=== PATIENT | female | born 1930 | race Caucasian/White ===

== ENCOUNTER 2018-10-21 08:38 | Inpatient (IN) ==
[2018-10-21 10:17] LABS: Apearance,Urine CLOUDY (Clear); Bacteria,Urine Moderate /HPF (Few); Bilirubin,Urine Negative (Negative); Blood, Urine Large mg/dL (Negative); Glucose,Urine (UA) Negative (Negative); Ketones,Urine Negative (Negative); Mucus,Urine Occasional /LPF (Occasional); Nitrite,Urine Negative (Negative); Protein,Urine 30 MG/DL; RBC,Urine 109 /HPF (0-4); Squamous Epithelial Cell,Urine Occasional /HPF (0-10); Urine Color Amber (Yellow); Urine Specific Gravity 1.012 (1.001-1.035); WBC,Urine 105 /HPF (0-6)
[2018-10-21 10:31] LABS: Basophils # 0.1 10*3/uL (0.0-0.2); Basophils % 0.2 % (0.0-0.8); Hemoglobin 7.2 GM/DL (12.0-16.0); Immature Granulocytes % 4.5 %; Immature Granulocytes Absolute 1.77 #; Lymphocytes # 0.5 10*3/uL (1.4-4.0); Lymphocytes % 1.3 % (21.3-54.2); Mean Corpuscular HGB Conc 31.3 GM/DL (32-36); Mean Corpuscular Hemoglobin 28 PG (27-34); Mean Corpuscular Volume 88.5 FL (87-102); Mean Platelet Volume 8.6 FL (9.6-12.0); Monocytes # 1.4 10*3/uL (0.11-0.8); Monocytes % 3.6 % (1.7-12.7); Neutrophils # 35.5 10*3/uL (1.4-7.4); Neutrophils % 90.4 % (38.7-73.9); Platelet Count 404 T/CUMM (130-400); Red Cell Distribution Width 13.2 % (9.3-17.3); White Blood Count 39.2 T/CUMM (4-12)
[2018-10-21] MEDS ORDERED: MEROPENEM 1,000 MG in SODIUM CHLORIDE 0.9% 100 ML IV STA (10:44)
[2018-10-21 10:50] LABS: Band Neutrophils 10 % (0-10); Hypochromasia 1+; Platelet Estimate Adequate; Segmented Neutrophils 88 % (50-85); Total Cells Counted 100
[2018-10-21] MEDS ORDERED: SODIUM CHLORIDE 0.9% 1,000 ML IV STA (10:50)
[2018-10-21] MEDS ORDERED: ACETAMINOPHEN 325 MG TABLET PO PRN (11:12)
[2018-10-21] MEDS ORDERED: ONDANSETRON 4 MG/2 ML VIAL IV PRN (11:12)
[2018-10-21] MEDS: SODIUM CHLORIDE 0.9% 1,000 ML IV SCH ×2 (11:55→17:06)
[2018-10-21 13:16] LABS: Albumin 3.1 G/DL (3.4-5.0); Bilirubin,Total 0.9 MG/DL (0.2-1.0); Calcium 9.7 MG/DL (8.5-10.1); Osmolality,Calculated 271.4 MOS/KG (273-304); Potassium 4.6 MMOL/L (3.5-5.1); Total Protein 6.6 G/DL (6.4-8.3)
[2018-10-21] MEDS ORDERED: SODIUM CHLORIDE 0.9% 1,000 ML IV PRN ×2 (16:42→16:53)
[2018-10-21] MEDS ORDERED: FUROSEMIDE 40 MG/4 ML VIAL IV ONE (16:44)
[2018-10-21 17:30] LABS: Hematocrit 21.3 VOL% (35.7-47.0)
[2018-10-21 17:32] LABS: Hemoglobin 6.4 GM/DL (12.0-16.0)
[2018-10-21 17:56] LABS: % Iron Saturation 2.3 % (18-50); Ferritin 30.5 ng/ml (8-252)
[2018-10-21] MEDS: PANTOPRAZOLE 40 MG VIAL IV SCH (18:38)
[2018-10-21] MEDS: MELATONIN 3 MG TABLET PO SCH (22:45)
[2018-10-21] MEDS: ENOXAPARIN 40 MG/0.4 ML SYRINGE SUBCUT SCH (22:46)
[2018-10-21] MEDS: DOCUSATE SODIUM 100 MG CAPSULE PO SCH (22:46)
[2018-10-22] MEDS: MEROPENEM 1,000 MG in SODIUM CHLORIDE 0.9% 100 ML IV SCH ×3 (00:51→23:25)
[2018-10-22] MEDS: SODIUM CHLORIDE 0.9% 1,000 ML IV SCH ×4 (00:51→23:32)
[2018-10-22] MEDS ORDERED: FUROSEMIDE 40 MG/4 ML VIAL ONE (04:29)
[2018-10-22] MEDS ORDERED: PANTOPRAZOLE 40 MG TABLET PO SCH (09:00)
[2018-10-22 09:52] LABS: Basophils # 0.1 10*3/uL (0.0-0.2); Basophils % 0.3 % (0.0-0.8); Eosinophils # 0.1 10*3/uL (0.0-0.87); Eosinophils % 0.4 % (0.00-10.9); Hematocrit 29.6 VOL% (35.7-47.0); Hemoglobin 9.1 GM/DL (12.0-16.0); Immature Granulocytes % 1.7 %; Immature Granulocytes Absolute 0.44 #; Lymphocytes # 1.2 10*3/uL (1.4-4.0); Lymphocytes % 4.5 % (21.3-54.2); Mean Corpuscular HGB Conc 30.7 GM/DL (32-36); Mean Corpuscular Hemoglobin 27 PG (27-34); Mean Corpuscular Volume 88.6 FL (87-102); Mean Platelet Volume 9.3 FL (9.6-12.0); Monocytes # 0.6 10*3/uL (0.11-0.8); Monocytes % 2.2 % (1.7-12.7); Neutrophils # 24.2 10*3/uL (1.4-7.4); Neutrophils % 90.9 % (38.7-73.9); Platelet Count 376 T/CUMM (130-400); Red Blood Count 3.34 MC/CUMM (3.8-5.5); Red Cell Distribution Width 13.7 % (9.3-17.3); White Blood Count 26.6 T/CUMM (4-12)
[2018-10-22] MEDS: PANTOPRAZOLE 40 MG VIAL IV SCH (09:55)
[2018-10-22] MEDS: DOCUSATE SODIUM 100 MG CAPSULE PO SCH ×2 (09:57→21:46)
[2018-10-22 10:13] LABS: Calcium 8.5 MG/DL (8.5-10.1); Osmolality,Calculated 278.1 MOS/KG (273-304); Potassium 3.3 MMOL/L (3.5-5.1)
[2018-10-22 12:33] LABS: Band Neutrophils 2 % (0-10); Lymphocytes 9 % (20-55); Segmented Neutrophils 88 % (50-85); Total Cells Counted 100
[2018-10-22 12:40] LABS: Hypochromasia 1+; Platelet Estimate Adequate
[2018-10-22 16:27] LABS: Hematocrit 27.2 VOL% (35.7-47.0); Hemoglobin 8.9 GM/DL (12.0-16.0)
[2018-10-22] MEDS: POTASSIUM CHLORIDE 20 MEQ TABLET PO PRN ×3 (18:19→23:23)
[2018-10-22] MEDS: ENOXAPARIN 40 MG/0.4 ML SYRINGE SUBCUT SCH (21:52)
[2018-10-22] MEDS: MELATONIN 3 MG TABLET PO SCH (21:52)
[2018-10-23 00:56] LABS: Hematocrit 27.3 VOL% (35.7-47.0); Hemoglobin 8.9 GM/DL (12.0-16.0)
[2018-10-23 01:13] LABS: Calcium 8.3 MG/DL (8.5-10.1); Potassium 4.3 MMOL/L (3.5-5.1)
[2018-10-23 07:59] LABS: Hematocrit 31.1 VOL% (35.7-47.0); Hemoglobin 9.8 GM/DL (12.0-16.0)
[2018-10-23] MEDS: ALLOPURINOL 100 MG TABLET PO SCH (08:55)
[2018-10-23] MEDS: DOCUSATE SODIUM 100 MG CAPSULE PO SCH ×2 (08:55→21:58)
[2018-10-23] MEDS: PANTOPRAZOLE 40 MG VIAL IV SCH (08:55)
[2018-10-23] MEDS: MEROPENEM 1,000 MG in SODIUM CHLORIDE 0.9% 100 ML IV SCH ×2 (11:43→22:07)
[2018-10-23] MEDS: SODIUM CHLORIDE 0.9% 1,000 ML IV SCH (14:10)
[2018-10-23] MEDS: ENOXAPARIN 40 MG/0.4 ML SYRINGE SUBCUT SCH (21:57)
[2018-10-23] MEDS: MELATONIN 3 MG TABLET PO SCH (21:57)
[2018-10-24] MEDS: SODIUM CHLORIDE 0.9% 1,000 ML IV SCH ×2 (04:13→20:20)
[2018-10-24 05:29] LABS: Basophils # 0.1 10*3/uL (0.0-0.2); Basophils % 0.6 % (0.0-0.8); Eosinophils # 0.4 10*3/uL (0.0-0.87); Eosinophils % 3.8 % (0.00-10.9); Hematocrit 27.8 VOL% (35.7-47.0); Hemoglobin 8.7 GM/DL (12.0-16.0); Immature Granulocytes % 0.8 %; Immature Granulocytes Absolute 0.09 #; Lymphocytes # 1.7 10*3/uL (1.4-4.0); Lymphocytes % 15.3 % (21.3-54.2); Mean Corpuscular HGB Conc 31.3 GM/DL (32-36); Mean Corpuscular Hemoglobin 27 PG (27-34); Mean Corpuscular Volume 87.4 FL (87-102); Mean Platelet Volume 9.5 FL (9.6-12.0); Monocytes # 0.8 10*3/uL (0.11-0.8); Neutrophils # 7.9 10*3/uL (1.4-7.4); Neutrophils % 72.5 % (38.7-73.9); Platelet Count 363 T/CUMM (130-400); Red Blood Count 3.18 MC/CUMM (3.8-5.5); Red Cell Distribution Width 13.5 % (9.3-17.3); White Blood Count 10.8 T/CUMM (4-12)
[2018-10-24 05:45] LABS: Calcium 8.5 MG/DL (8.5-10.1); Osmolality,Calculated 275.5 MOS/KG (273-304); Potassium 4.2 MMOL/L (3.5-5.1)
[2018-10-24] MEDS: DOCUSATE SODIUM 100 MG CAPSULE PO SCH ×2 (09:07→20:19)
[2018-10-24] MEDS: amLODIPine 5 MG TABLET PO SCH (09:09)
[2018-10-24] MEDS: ALLOPURINOL 100 MG TABLET PO SCH (09:09)
[2018-10-24] MEDS: PANTOPRAZOLE 40 MG VIAL IV SCH (09:09)
[2018-10-24] MEDS: MEROPENEM 1,000 MG in SODIUM CHLORIDE 0.9% 100 ML IV SCH ×2 (10:27→20:18)
[2018-10-24] MEDS ORDERED: PROPOFOL 200 MG/20 ML VIAL IV ONE (13:58)
[2018-10-24] MEDS ORDERED: LIDOCAINE 2% 5 ML VIAL ONE (13:58)
[2018-10-24] MEDS ORDERED: POLYETHYLENE GLYCOL POWDER 255 GM BOTTLE PO ONE (18:00)
[2018-10-24] MEDS: MELATONIN 3 MG TABLET PO SCH (20:20)
[2018-10-25 05:23] LABS: Calcium 8.5 MG/DL (8.5-10.1); Osmolality,Calculated 273.5 MOS/KG (273-304); Potassium 3.9 MMOL/L (3.5-5.1)
[2018-10-25] MEDS ORDERED: MAGNESIUM CITRATE 300 ML BOTTLE PO ONE (06:00)
[2018-10-25] MEDS: amLODIPine 5 MG TABLET PO SCH (08:56)
[2018-10-25] MEDS: ALLOPURINOL 100 MG TABLET PO SCH (08:56)
[2018-10-25] MEDS: PANTOPRAZOLE 40 MG VIAL IV SCH (08:56)
[2018-10-25] MEDS: MEROPENEM 1,000 MG in SODIUM CHLORIDE 0.9% 100 ML IV SCH (08:59)
[2018-10-25] MEDS: SODIUM CHLORIDE 0.9% 1,000 ML IV SCH (09:41)
[2018-10-25] MEDS ORDERED: PROPOFOL 200 MG/20 ML VIAL IV ONE (10:00)
[2018-10-25] MEDS ORDERED: LIDOCAINE 2% 5 ML VIAL ONE (10:00)
[2018-10-25] MEDS: DOCUSATE SODIUM 100 MG CAPSULE PO SCH (10:26)
[2018-10-25 14:33] VITALS: BP 156/64
== END 2018-10-25 16:10 | disposition home or self-care (01) | DRG 871 ==
LOC: N.ED 08:38 → N.EDINP 11:12 → N.2E 11:37
PROVIDERS: ADMIT Family Medicine; ATTEND Family Medicine

== ENCOUNTER 2019-06-28 14:42 | Inpatient (IN) ==
[2019-06-28] MEDS ORDERED: ONDANSETRON 4 MG/2 ML VIAL IV STA (15:15)
[2019-06-28] MEDS ORDERED: SODIUM CHLORIDE 0.9% 1,000 ML IV STA (16:07)
[2019-06-28 16:30] LABS: Basophils # 0.1 10*3/uL (0.0-0.2); Basophils % 0.2 % (0.0-0.8); Hematocrit 35.9 VOL% (35.7-47.0); Hemoglobin 12.4 GM/DL (12.0-16.0); Immature Granulocytes % 0.8 %; Immature Granulocytes Absolute 0.17 #; Lymphocytes # 0.9 10*3/uL (1.4-4.0); Lymphocytes % 4.3 % (21.3-54.2); Mean Corpuscular HGB Conc 34.5 GM/DL (32-36); Mean Corpuscular Volume 94.2 FL (87-102); Mean Platelet Volume 8.9 FL (9.6-12.0); Monocytes % 5.7 % (1.7-12.7); Platelet Count 338 T/CUMM (130-400); Red Blood Count 3.81 MC/CUMM (3.8-5.5); Red Cell Distribution Width 13.6 % (9.3-17.3); White Blood Count 20.5 T/CUMM (4-12)
[2019-06-28 16:39] LABS: PT Patient Result 10.4 SECS (9.6-12.2)
[2019-06-28 16:50] LABS: Albumin 3.3 G/DL (3.4-5.0); Bilirubin,Total 1.6 MG/DL (0.2-1.0); Calcium 9.5 MG/DL (8.5-10.1); Lymphocytes 7 % (20-55); Osmolality,Calculated 267.7 MOS/KG (273-304); Segmented Neutrophils 85 % (50-85); Total Cells Counted 100; Total Protein 7.5 G/DL (6.4-8.3)
[2019-06-28 16:51] LABS: Platelet Estimate Adequate
[2019-06-28 16:52] LABS: Troponin I < 0.015 NG/ML (0.00-0.045)
[2019-06-28 16:54] LABS: Apearance,Urine Slightly Hazy (Clear); Bacteria,Urine Occasional /HPF (Few); Bilirubin,Urine Negative (Negative); Blood, Urine Small mg/dL (Negative); Glucose,Urine (UA) Negative (Negative); Ketones,Urine Negative (Negative); Mucus,Urine Many /LPF (Occasional); Nitrite,Urine Negative (Negative); Protein,Urine 30 MG/DL; Squamous Epithelial Cell,Urine Occasional /HPF (0-10); Urine Color Yellow (Yellow); Urine Specific Gravity 1.015 (1.001-1.035); WBC,Urine 20 /HPF (0-6)
[2019-06-28 17:04] LABS: Free T4 (Free Thyroxine) 1.18 NG/DL (0.76-1.46); Thyroid Stimulating Hormone 0.637 uIU/ml (0.358-3.74)
[2019-06-28] MEDS: SODIUM CHLORIDE 0.9% 1,000 ML IV SCH (19:38)
[2019-06-28] MEDS: DOCUSATE SODIUM 100 MG CAPSULE PO SCH (20:49)
[2019-06-29] MEDS: SODIUM CHLORIDE 0.9% 1,000 ML IV SCH ×3 (03:55→22:34)
[2019-06-29 05:47] LABS: Albumin 2.6 G/DL (3.4-5.0); Bilirubin,Total 1.6 MG/DL (0.2-1.0); Osmolality,Calculated 272.1 MOS/KG (273-304); Total Protein 6.6 G/DL (6.4-8.3)
[2019-06-29] MEDS ORDERED: LEVOFLOXACIN INJ 750 MG in PREMIX 1 EACH IV SCH (07:00)
[2019-06-29] MEDS: DOCUSATE SODIUM 100 MG CAPSULE PO SCH ×2 (09:46→20:48)
[2019-06-29] MEDS: PANTOPRAZOLE 40 MG TABLET PO SCH (09:46)
[2019-06-29] MEDS: ONDANSETRON 4 MG/2 ML VIAL IV PRN (17:33)
[2019-06-29] MEDS: ACETAMINOPHEN 325 MG TABLET PO PRN (17:45)
[2019-06-30] MEDS: SODIUM CHLORIDE 0.9% 1,000 ML IV SCH ×2 (06:15→17:22)
[2019-06-30] MEDS: CYANOCOBALAMIN 500 MCG TABLET PO SCH (09:53)
[2019-06-30] MEDS: ASPIRIN EC 81 MG TABLET PO SCH (09:53)
[2019-06-30] MEDS: PANTOPRAZOLE 40 MG TABLET PO SCH (09:53)
[2019-06-30] MEDS: OMEGA 3 ACID ETHYL ESTERS 1 GM CAPSULE PO SCH (09:53)
[2019-06-30] MEDS: DOCUSATE SODIUM 100 MG CAPSULE PO SCH ×2 (09:53→20:49)
[2019-06-30] MEDS: amLODIPine 5 MG TABLET PO SCH (09:53)
[2019-06-30] MEDS: TRIAMTERENE/HCTZ 37.5-25 MG TABLET PO SCH (09:54)
[2019-06-30] MEDS: OLMESARTAN 20 MG TABLET PO SCH (09:54)
[2019-06-30] MEDS: LEVOFLOXACIN INJ 750 MG in PREMIX 1 EACH IV SCH (09:55)
[2019-06-30] MEDS: VANCOMYCIN INJ 1,000 MG in SODIUM CHLORIDE 0.9% 250 ML IV SCH (12:11)
[2019-06-30] MEDS: ONDANSETRON 4 MG/2 ML VIAL IV PRN (16:15)
[2019-06-30] MEDS: ZALEPLON 5 MG CAPSULE PO PRN (20:49)
[2019-07-01] MEDS: SODIUM CHLORIDE 0.9% 1,000 ML IV SCH ×3 (00:55→20:25)
[2019-07-01] MEDS: VANCOMYCIN INJ 1,000 MG in SODIUM CHLORIDE 0.9% 250 ML IV SCH (07:00)
[2019-07-01] MEDS: CYANOCOBALAMIN 500 MCG TABLET PO SCH (09:34)
[2019-07-01] MEDS: ASPIRIN EC 81 MG TABLET PO SCH (09:34)
[2019-07-01] MEDS: TRIAMTERENE/HCTZ 37.5-25 MG TABLET PO SCH (09:34)
[2019-07-01] MEDS: PANTOPRAZOLE 40 MG TABLET PO SCH (09:34)
[2019-07-01] MEDS: OLMESARTAN 20 MG TABLET PO SCH (09:34)
[2019-07-01] MEDS: amLODIPine 5 MG TABLET PO SCH (09:34)
[2019-07-01] MEDS: OMEGA 3 ACID ETHYL ESTERS 1 GM CAPSULE PO SCH (09:34)
[2019-07-01] MEDS: DOCUSATE SODIUM 100 MG CAPSULE PO SCH ×2 (09:34→20:22)
[2019-07-01] MEDS: LEVOFLOXACIN INJ 750 MG in PREMIX 1 EACH IV SCH (09:35)
[2019-07-01] MEDS: ONDANSETRON 4 MG/2 ML VIAL IV PRN (14:26)
[2019-07-01] MEDS: ACETAMINOPHEN 325 MG TABLET PO PRN (20:22)
[2019-07-01] MEDS: ZALEPLON 5 MG CAPSULE PO PRN (20:22)
[2019-07-02] MEDS: VANCOMYCIN INJ 1,000 MG in SODIUM CHLORIDE 0.9% 250 ML IV SCH ×2 (00:06→19:00)
[2019-07-02 06:19] LABS: Basophils # 0.1 10*3/uL (0.0-0.2); Basophils % 0.4 % (0.0-0.8); Eosinophils # 0.1 10*3/uL (0.0-0.87); Eosinophils % 0.8 % (0.00-10.9); Hematocrit 29.7 VOL% (35.7-47.0); Hemoglobin 10.1 GM/DL (12.0-16.0); Immature Granulocytes % 0.9 %; Lymphocytes # 1.3 10*3/uL (1.4-4.0); Lymphocytes % 11.4 % (21.3-54.2); Mean Corpuscular Volume 93.7 FL (87-102); Mean Platelet Volume 9.3 FL (9.6-12.0); Monocytes % 7.2 % (1.7-12.7); Neutrophils % 79.3 % (38.7-73.9); Platelet Count 345 T/CUMM (130-400); Red Blood Count 3.17 MC/CUMM (3.8-5.5); Red Cell Distribution Width 13.3 % (9.3-17.3); White Blood Count 11.5 T/CUMM (4-12)
[2019-07-02 06:53] LABS: Calcium 8.4 MG/DL (8.5-10.1)
[2019-07-02] MEDS: SODIUM CHLORIDE 0.9% 1,000 ML IV SCH ×2 (08:00→17:43)
[2019-07-02] MEDS: amLODIPine 5 MG TABLET PO SCH (08:54)
[2019-07-02] MEDS: TRIAMTERENE/HCTZ 37.5-25 MG TABLET PO SCH (08:54)
[2019-07-02] MEDS: OLMESARTAN 20 MG TABLET PO SCH (08:54)
[2019-07-02] MEDS: DOCUSATE SODIUM 100 MG CAPSULE PO SCH ×2 (08:54→20:40)
[2019-07-02] MEDS: OMEGA 3 ACID ETHYL ESTERS 1 GM CAPSULE PO SCH (08:54)
[2019-07-02] MEDS: PANTOPRAZOLE 40 MG TABLET PO SCH (08:54)
[2019-07-02] MEDS: ASPIRIN EC 81 MG TABLET PO SCH (08:54)
[2019-07-02] MEDS: CYANOCOBALAMIN 500 MCG TABLET PO SCH (08:54)
[2019-07-02] MEDS: LEVOFLOXACIN INJ 750 MG in PREMIX 1 EACH IV SCH (09:16)
[2019-07-02] MEDS: ACETAMINOPHEN 325 MG TABLET PO PRN (17:41)
[2019-07-02] MEDS: ZALEPLON 5 MG CAPSULE PO PRN (20:40)
[2019-07-03] MEDS: SODIUM CHLORIDE 0.9% 1,000 ML IV SCH ×2 (01:49→11:22)
[2019-07-03 07:54] VITALS: BP 171/72
[2019-07-03] MEDS: LEVOFLOXACIN INJ 750 MG in PREMIX 1 EACH IV SCH (09:02)
[2019-07-03] MEDS: CYANOCOBALAMIN 500 MCG TABLET PO SCH (09:03)
[2019-07-03] MEDS: DOCUSATE SODIUM 100 MG CAPSULE PO SCH (09:03)
[2019-07-03] MEDS: amLODIPine 5 MG TABLET PO SCH (09:03)
[2019-07-03] MEDS: ASPIRIN EC 81 MG TABLET PO SCH (09:03)
[2019-07-03] MEDS: PANTOPRAZOLE 40 MG TABLET PO SCH (09:03)
[2019-07-03] MEDS: TRIAMTERENE/HCTZ 37.5-25 MG TABLET PO SCH (09:03)
[2019-07-03] MEDS: OMEGA 3 ACID ETHYL ESTERS 1 GM CAPSULE PO SCH (09:03)
[2019-07-03] MEDS: OLMESARTAN 20 MG TABLET PO SCH (09:04)
== END 2019-07-03 11:05 | disposition home health service (06) | DRG 690 ==
LOC: N.ED 14:42 → N.EDINP 18:08 → N.2E 18:35
PROVIDERS: ADMIT Family Medicine; ATTEND Family Medicine

== ENCOUNTER 2019-07-20 13:16 | Inpatient (IN) ==
[2019-07-20] MEDS ORDERED: SODIUM CHLORIDE 0.9% 1,000 ML IV STA (13:46)
[2019-07-20 13:59] LABS: Basophils # 0.1 10*3/uL (0.0-0.2); Basophils % 0.3 % (0.0-0.8); Eosinophils % 0.1 % (0.00-10.9); Hematocrit 35.6 VOL% (35.7-47.0); Immature Granulocytes % 0.7 %; Immature Granulocytes Absolute 0.16 #; Lymphocytes # 1.4 10*3/uL (1.4-4.0); Lymphocytes % 6.3 % (21.3-54.2); Mean Corpuscular HGB Conc 33.7 GM/DL (32-36); Mean Corpuscular Volume 93.9 FL (87-102); Mean Platelet Volume 8.8 FL (9.6-12.0); Monocytes % 6.9 % (1.7-12.7); Neutrophils % 85.7 % (38.7-73.9); Platelet Count 438 T/CUMM (130-400); Red Blood Count 3.79 MC/CUMM (3.8-5.5); Red Cell Distribution Width 13.2 % (9.3-17.3); White Blood Count 21.9 T/CUMM (4-12)
[2019-07-20 14:18] LABS: Calcium 10.4 MG/DL (8.5-10.1); Osmolality,Calculated 265.8 MOS/KG (273-304); Total Protein 8.6 G/DL (6.4-8.3)
[2019-07-20 14:22] LABS: Troponin I < 0.015 NG/ML (0.00-0.045)
[2019-07-20 14:22] LABS: Apearance,Urine CLEAR (Clear); Bilirubin,Urine Negative (Negative); Blood, Urine Negative (Negative); Glucose,Urine (UA) Negative (Negative); Hyaline Casts,Urine 1 /LPF (0-3); Ketones,Urine Negative (Negative); Mucus,Urine Occasional /LPF (Occasional); Nitrite,Urine Negative (Negative); Protein,Urine 30 MG/DL; RBC,Urine 3 /HPF (0-4); Squamous Epithelial Cell,Urine Occasional /HPF (0-10); Transitional Epi Cells,Urine Occasional /HPF (<1); Urine Color Yellow (Yellow); Urine Specific Gravity 1.015 (1.001-1.035); Urine Urobilinogen < 2.0 EU/DL (0.2-1.0); WBC,Urine 1 /HPF (0-6)
[2019-07-20] MEDS ORDERED: ONDANSETRON 4 MG/2 ML VIAL IV PRN (15:19)
[2019-07-20] MEDS ORDERED: ACETAMINOPHEN 500 MG TABLET PO PRN (15:19)
[2019-07-20 16:06] LABS: Band Neutrophils 1 % (0-10); Lymphocytes 11 % (20-55); Platelet Estimate Increased; Segmented Neutrophils 85 % (50-85); Total Cells Counted 100
[2019-07-20] MEDS: cefTRIAXone 2,000 MG in SYRINGE 1 EACH IV SCH (17:06)
[2019-07-20] MEDS: SODIUM CHLORIDE 0.9% 1,000 ML IV SCH (17:07)
[2019-07-20] MEDS: TAMSULOSIN 0.4 MG CAPSULE PO SCH (20:28)
[2019-07-20] MEDS ORDERED: TAMSULOSIN 0.4 MG CAPSULE PO SCH (21:00)
[2019-07-21] MEDS: SODIUM CHLORIDE 0.9% 1,000 ML IV SCH ×2 (05:49→17:59)
[2019-07-21 08:06] LABS: Basophils # 0.1 10*3/uL (0.0-0.2); Basophils % 0.6 % (0.0-0.8); Eosinophils % 0.2 % (0.00-10.9); Hematocrit 27.1 VOL% (35.7-47.0); Hemoglobin 9.1 GM/DL (12.0-16.0); Immature Granulocytes % 0.6 %; Immature Granulocytes Absolute 0.09 #; Lymphocytes # 1.2 10*3/uL (1.4-4.0); Lymphocytes % 7.7 % (21.3-54.2); Mean Corpuscular HGB Conc 33.6 GM/DL (32-36); Mean Corpuscular Volume 94.1 FL (87-102); Mean Platelet Volume 9.2 FL (9.6-12.0); Monocytes % 7.9 % (1.7-12.7); Platelet Count 350 T/CUMM (130-400); Red Blood Count 2.88 MC/CUMM (3.8-5.5); White Blood Count 15.7 T/CUMM (4-12)
[2019-07-21 08:36] LABS: Calcium 9.5 MG/DL (8.5-10.1)
[2019-07-21] MEDS: OMEGA 3 ACID ETHYL ESTERS 1 GM CAPSULE PO SCH (09:10)
[2019-07-21] MEDS: amLODIPine 5 MG TABLET PO SCH (09:10)
[2019-07-21] MEDS: TRIAMTERENE/HCTZ 37.5-25 MG TABLET PO SCH (09:10)
[2019-07-21] MEDS: CYANOCOBALAMIN 500 MCG TABLET PO SCH (09:10)
[2019-07-21] MEDS: PANTOPRAZOLE 40 MG TABLET PO SCH (09:10)
[2019-07-21] MEDS: OLMESARTAN 20 MG TABLET PO SCH (09:10)
[2019-07-21] MEDS: ASPIRIN EC 81 MG TABLET PO SCH (09:10)
[2019-07-21] MEDS: cefTRIAXone 2,000 MG in SYRINGE 1 EACH IV SCH (16:12)
[2019-07-21] MEDS: TAMSULOSIN 0.4 MG CAPSULE PO SCH (20:19)
[2019-07-22] MEDS: CYANOCOBALAMIN 500 MCG TABLET PO SCH (08:58)
[2019-07-22] MEDS: TRIAMTERENE/HCTZ 37.5-25 MG TABLET PO SCH (08:58)
[2019-07-22] MEDS: ASPIRIN EC 81 MG TABLET PO SCH (08:58)
[2019-07-22] MEDS: OLMESARTAN 20 MG TABLET PO SCH (08:58)
[2019-07-22] MEDS: OMEGA 3 ACID ETHYL ESTERS 1 GM CAPSULE PO SCH (08:59)
[2019-07-22] MEDS: PANTOPRAZOLE 40 MG TABLET PO SCH (08:59)
[2019-07-22] MEDS: amLODIPine 5 MG TABLET PO SCH (08:59)
[2019-07-22] MEDS: cefTRIAXone 2,000 MG in SYRINGE 1 EACH IV SCH (16:35)
[2019-07-22] MEDS: TAMSULOSIN 0.4 MG CAPSULE PO SCH (20:23)
[2019-07-22] MEDS: SODIUM CHLORIDE 0.9% 1,000 ML IV SCH ×2 (20:25→20:26)
[2019-07-22] MEDS: ACETAMINOPHEN 325 MG TABLET PO PRN (20:30)
[2019-07-23] MEDS: SODIUM CHLORIDE 0.9% 1,000 ML IV SCH ×2 (00:15→13:22)
[2019-07-23] MEDS: amLODIPine 5 MG TABLET PO SCH (08:04)
[2019-07-23] MEDS: OLMESARTAN 20 MG TABLET PO SCH (08:04)
[2019-07-23] MEDS: ASPIRIN EC 81 MG TABLET PO SCH (08:04)
[2019-07-23] MEDS: TRIAMTERENE/HCTZ 37.5-25 MG TABLET PO SCH (08:04)
[2019-07-23] MEDS: OMEGA 3 ACID ETHYL ESTERS 1 GM CAPSULE PO SCH (08:04)
[2019-07-23] MEDS: CYANOCOBALAMIN 500 MCG TABLET PO SCH (08:05)
[2019-07-23] MEDS: PANTOPRAZOLE 40 MG TABLET PO SCH (08:05)
[2019-07-23] MEDS: cefTRIAXone 2,000 MG in SYRINGE 1 EACH IV SCH (16:16)
[2019-07-23] MEDS: ACETAMINOPHEN 325 MG TABLET PO PRN (20:33)
[2019-07-23] MEDS: TAMSULOSIN 0.4 MG CAPSULE PO SCH (20:33)
[2019-07-24] MEDS: SODIUM CHLORIDE 0.9% 1,000 ML IV SCH ×2 (00:30→13:20)
[2019-07-24 05:23] LABS: Basophils # 0.1 10*3/uL (0.0-0.2); Basophils % 1.9 % (0.0-0.8); Eosinophils # 0.6 10*3/uL (0.0-0.87); Eosinophils % 11.9 % (0.00-10.9); Hematocrit 27.4 VOL% (35.7-47.0); Hemoglobin 9.3 GM/DL (12.0-16.0); Immature Granulocytes % 0.7 %; Immature Granulocytes Absolute 0.04 #; Lymphocytes # 1.4 10*3/uL (1.4-4.0); Lymphocytes % 25.9 % (21.3-54.2); Mean Corpuscular HGB Conc 33.9 GM/DL (32-36); Mean Corpuscular Volume 92.6 FL (87-102); Mean Platelet Volume 8.8 FL (9.6-12.0); Monocytes % 9.5 % (1.7-12.7); Neutrophils % 50.1 % (38.7-73.9); Platelet Count 423 T/CUMM (130-400); Red Blood Count 2.96 MC/CUMM (3.8-5.5); Red Cell Distribution Width 12.8 % (9.3-17.3); White Blood Count 5.4 T/CUMM (4-12)
[2019-07-24 06:01] LABS: Band Neutrophils 2 % (0-10); Eosinophils 10 % (0-10); Lymphocytes 26 % (20-55); Platelet Estimate Normal; Segmented Neutrophils 52 % (50-85); Total Cells Counted 100
[2019-07-24 06:04] LABS: Calcium 9.7 MG/DL (8.5-10.1)
[2019-07-24] MEDS ORDERED: TUBERCULIN SKIN TEST 0.1 ML SYRINGE INTRADERM ONE (09:19)
[2019-07-24] MEDS: amLODIPine 5 MG TABLET PO SCH (09:38)
[2019-07-24] MEDS: PANTOPRAZOLE 40 MG TABLET PO SCH (09:38)
[2019-07-24] MEDS: OLMESARTAN 20 MG TABLET PO SCH (09:38)
[2019-07-24] MEDS: OMEGA 3 ACID ETHYL ESTERS 1 GM CAPSULE PO SCH (09:38)
[2019-07-24] MEDS: CYANOCOBALAMIN 500 MCG TABLET PO SCH (09:38)
[2019-07-24] MEDS: TRIAMTERENE/HCTZ 37.5-25 MG TABLET PO SCH (09:38)
[2019-07-24] MEDS: ASPIRIN EC 81 MG TABLET PO SCH (09:38)
[2019-07-24 11:56] VITALS: BP 131/44
[2019-07-24] MEDS ORDERED: BISACODYL 10 MG SUPP RECTAL ONE (12:03)
== END 2019-07-24 13:30 | DRG 641 ==
LOC: N.ED 13:16 → N.EDINP 15:18 → N.5E 15:38
PROVIDERS: ADMIT Family Medicine; ATTEND Family Medicine

== ENCOUNTER 2021-03-04 10:02 | Observation (INO) ==
[2021-03-04] MEDS ORDERED: SODIUM CHLORIDE 0.9% 1,000 ML IV STA (10:38)
[2021-03-04 10:44] LABS: Basophils # 0.1 10*3/uL (0.0-0.2); Basophils % 0.9 % (0.0-0.8); Eosinophils # 0.2 10*3/uL (0.0-0.87); Eosinophils % 2.8 % (0.00-10.9); Hemoglobin 13.8 GM/DL (12.0-16.0); Immature Granulocytes % 0.4 %; Immature Granulocytes Absolute 0.03 #; Lymphocytes # 1.7 10*3/uL (1.4-4.0); Lymphocytes % 22.3 % (21.3-54.2); Mean Corpuscular HGB Conc 34.5 GM/DL (32-36); Mean Corpuscular Volume 92.4 FL (87-102); Mean Platelet Volume 8.8 FL (9.6-12.0); Monocytes % 6.2 % (1.7-12.7); Neutrophils % 67.4 % (38.7-73.9); Platelet Count 285 T/CUMM (130-400); Red Blood Count 4.33 MC/CUMM (3.8-5.5); Red Cell Distribution Width 13.2 % (9.3-17.3); White Blood Count 7.4 T/CUMM (4-12)
[2021-03-04 11:02] LABS: Alanine Aminotransferase 31 U/L (13-56); Albumin 3.7 G/DL (3.4-5.0); Alkaline Phosphatase 89 U/L (45-117); Aspartate Amino Transferase 20 U/L (0-37); Blood Urea Nitrogen 15 MG/DL (7-18); Calcium 9.5 MG/DL (8.5-10.1); Carbon Dioxide 29 MMOL/L (21-32); Estimated Glom Filtration Rate 73 ML/MIN; Glucose 101 MG/DL (74-106); Osmolality,Calculated 264.5 MOS/KG (273-304); Potassium 3.8 MMOL/L (3.5-5.1); Sodium 132 MMOL/L (136-145)
[2021-03-04 11:19] LABS: PT Patient Result 10.9 SECS (10.5-12.0); Partial Thromboplastin Time 25.1 SECS (23.9-33.8)
[2021-03-04 11:30] LABS: Barbiturates Screen,Urine Negative (Negative); Benzodiazepines Screen,Urine Negative (Negative); Cannabinoid Screen,Urine Negative (Negative); Opiate Screen,Urine Negative (Negative); Phencyclidine Screen,Urine Negative (Negative)
[2021-03-04] MEDS ORDERED: ONDANSETRON 4 MG/2 ML VIAL IV PRN (14:35)
[2021-03-04] MEDS ORDERED: ACETAMINOPHEN 325 MG TABLET PO PRN (14:35)
[2021-03-04] MEDS: SODIUM CHLORIDE 0.9% 1,000 ML IV SCH (19:19)
[2021-03-04] MEDS: DOCUSATE SODIUM 100 MG CAPSULE PO SCH (20:49)
[2021-03-04] MEDS: METHENAMINE HIPPURATE 1 GM TABLET PO SCH (20:49)
[2021-03-04] MEDS ORDERED: ATORVASTATIN 10 MG TABLET PO SCH (21:00)
[2021-03-05] MEDS: SODIUM CHLORIDE 0.9% 1,000 ML IV SCH (03:03)
[2021-03-05 08:16] VITALS: BP 137/82
[2021-03-05] MEDS: DOCUSATE SODIUM 100 MG CAPSULE PO SCH (08:54)
[2021-03-05] MEDS: METHENAMINE HIPPURATE 1 GM TABLET PO SCH (08:55)
[2021-03-05] MEDS ORDERED: TRIAMTERENE/HCTZ 37.5-25 MG TABLET PO SCH (09:00)
[2021-03-05] MEDS ORDERED: MULTIVITAMIN (CENTRUM) TABLET PO SCH (09:00)
[2021-03-05] MEDS ORDERED: PANTOPRAZOLE 40 MG TABLET PO SCH (09:00)
[2021-03-05] MEDS ORDERED: ASPIRIN EC 81 MG TABLET PO SCH (09:00)
[2021-03-05] MEDS ORDERED: VITAMIN E 400 UNIT CAPSULE PO SCH (09:00)
[2021-03-05] MEDS ORDERED: amLODIPine 5 MG TABLET PO SCH (09:00)
[2021-03-05] MEDS ORDERED: OLMESARTAN 20 MG TABLET PO SCH (09:00)
[2021-03-05] MEDS ORDERED: OMEGA 3 ACID ETHYL ESTERS 1 GM CAPSULE PO SCH (09:00)
[2021-03-05] MEDS ORDERED: CLOPIDOGREL 75 MG TABLET PO SCH (09:00)
== END 2021-03-05 15:00 | disposition home or self-care (01) ==
LOC: N.ED 10:02 → N.EDINP 10:02 → N.TELEN 13:44
PROVIDERS: ADMIT Family Medicine; ATTEND Family Medicine

== ENCOUNTER 2021-03-19 11:13 | Inpatient (IN) ==
[2021-03-19 12:52] LABS: Basophils # 0.1 10*3/uL (0.0-0.2); Basophils % 0.5 % (0.0-0.8); Eosinophils % 0.3 % (0.00-10.9); Hematocrit 41.7 VOL% (35.7-47.0); Hemoglobin 14.5 GM/DL (12.0-16.0); Immature Granulocytes % 0.4 %; Immature Granulocytes Absolute 0.04 #; Lymphocytes # 1.4 10*3/uL (1.4-4.0); Lymphocytes % 13.3 % (21.3-54.2); Mean Corpuscular HGB Conc 34.8 GM/DL (32-36); Mean Corpuscular Volume 91.4 FL (87-102); Mean Platelet Volume 8.8 FL (9.6-12.0); Monocytes % 4.1 % (1.7-12.7); Neutrophils % 81.4 % (38.7-73.9); Platelet Count 297 T/CUMM (130-400); Red Blood Count 4.56 MC/CUMM (3.8-5.5); Red Cell Distribution Width 13.5 % (9.3-17.3); White Blood Count 10.1 T/CUMM (4-12)
[2021-03-19 13:01] LABS: PT Patient Result 10.8 SECS (10.5-12.0); Partial Thromboplastin Time 24.4 SECS (23.9-33.8)
[2021-03-19 13:07] LABS: Albumin 3.6 G/DL (3.4-5.0); Bilirubin,Total 0.9 MG/DL (0.2-1.0); Calcium 9.5 MG/DL (8.5-10.1); Osmolality,Calculated 266.2 MOS/KG (273-304); Potassium 3.8 MMOL/L (3.5-5.1); Total Protein 6.9 G/DL (6.4-8.2)
[2021-03-19 13:11] LABS: Amorphous Crystals,Urine Few /HPF (Few); Bilirubin,Urine Negative (Negative); Blood, Urine Negative (Negative); Glucose,Urine (UA) Negative (Negative); Ketones,Urine Negative (Negative); Nitrite,Urine Negative (Negative); Protein,Urine Negative; RBC,Urine 1 /HPF (0-4); Squamous Epithelial Cell,Urine Occasional /HPF (0-10); Urine Appearance CLEAR (Clear); Urine Color Yellow (Yellow); Urine Specific Gravity 1.008 (1.001-1.035); Urine Urobilinogen < 2.0 EU/DL (0.2-1.0)
[2021-03-19] MEDS ORDERED: ACETAMINOPHEN 325 MG TABLET PO PRN (16:00)
[2021-03-19] MEDS ORDERED: ONDANSETRON 4 MG/2 ML VIAL IV PRN (16:00)
[2021-03-19] MEDS: SODIUM CHLORIDE 0.9% 1,000 ML IV SCH (17:17)
[2021-03-19] MEDS: cefTRIAXone 1,000 MG in SODIUM CHLORIDE 0.9% 100 ML IV SCH (18:59)
[2021-03-19 19:34] LABS: Barbiturates Screen,Urine Negative (Negative); Benzodiazepines Screen,Urine Negative (Negative); Cannabinoid Screen,Urine Negative (Negative); Opiate Screen,Urine Negative (Negative); Phencyclidine Screen,Urine Negative (Negative)
[2021-03-19] MEDS: DOCUSATE SODIUM 100 MG CAPSULE PO SCH (22:52)
[2021-03-20] MEDS: SODIUM CHLORIDE 0.9% 1,000 ML IV SCH ×3 (01:32→20:36)
[2021-03-20] MEDS: ASPIRIN EC 81 MG TABLET PO SCH (09:23)
[2021-03-20] MEDS: PANTOPRAZOLE 40 MG TABLET PO SCH (09:23)
[2021-03-20] MEDS: TRIAMTERENE/HCTZ 37.5-25 MG TABLET PO SCH (09:24)
[2021-03-20] MEDS: CLOPIDOGREL 75 MG TABLET PO SCH (09:24)
[2021-03-20] MEDS: MULTIVITAMIN (CENTRUM) TABLET PO SCH (09:24)
[2021-03-20] MEDS: amLODIPine 5 MG TABLET PO SCH (09:24)
[2021-03-20] MEDS: VITAMIN E 400 UNIT CAPSULE PO SCH (09:24)
[2021-03-20] MEDS: DOCUSATE SODIUM 100 MG CAPSULE PO SCH ×2 (09:24→21:23)
[2021-03-20] MEDS: OLMESARTAN 20 MG TABLET PO SCH (09:24)
[2021-03-20] MEDS: OMEGA 3 ACID ETHYL ESTERS 1 GM CAPSULE PO SCH (09:24)
[2021-03-20] MEDS: METHENAMINE HIPPURATE 1 GM TABLET PO SCH ×2 (11:39→21:23)
[2021-03-20] MEDS: cefTRIAXone 1,000 MG in SODIUM CHLORIDE 0.9% 100 ML IV SCH (17:46)
[2021-03-20] MEDS ORDERED: ATORVASTATIN 10 MG TABLET PO SCH (21:00)
[2021-03-21] MEDS: SODIUM CHLORIDE 0.9% 1,000 ML IV SCH (04:04)
[2021-03-21] MEDS: METHENAMINE HIPPURATE 1 GM TABLET PO SCH (09:24)
[2021-03-21] MEDS: TRIAMTERENE/HCTZ 37.5-25 MG TABLET PO SCH (09:25)
[2021-03-21] MEDS: PANTOPRAZOLE 40 MG TABLET PO SCH (09:25)
[2021-03-21] MEDS: CLOPIDOGREL 75 MG TABLET PO SCH (09:25)
[2021-03-21] MEDS: MULTIVITAMIN (CENTRUM) TABLET PO SCH (09:25)
[2021-03-21] MEDS: VITAMIN E 400 UNIT CAPSULE PO SCH (09:25)
[2021-03-21] MEDS: ASPIRIN EC 81 MG TABLET PO SCH (09:25)
[2021-03-21] MEDS: OMEGA 3 ACID ETHYL ESTERS 1 GM CAPSULE PO SCH (09:25)
[2021-03-21] MEDS: OLMESARTAN 20 MG TABLET PO SCH (09:25)
[2021-03-21] MEDS: DOCUSATE SODIUM 100 MG CAPSULE PO SCH (09:25)
[2021-03-21] MEDS: amLODIPine 5 MG TABLET PO SCH (09:26)
[2021-03-21 12:12] VITALS: BP 169/61
== END 2021-03-21 13:53 | disposition home health service (06) | DRG 69 ==
LOC: N.ED 11:13 → N.EDINP 15:16 → N.4E 15:51
PROVIDERS: ADMIT Family Medicine; ATTEND Family Medicine